=== PATIENT | female | born 1990 | race Caucasian/White ===

== ENCOUNTER 2017-09-08 16:56 | Emergency (ER) | payer SELFPAY ==
[2017-09-08 16:59] VITALS: BP 131/63; PULSE 94; RESP 20; TEMP 98.2; O2SAT 98
--- NOTE | 2017-09-08 17:24 | PD ---
HPI Chief Complaint: Numbness/Tingling Time Seen by Provider: 17:22 Travel History International Travel<30 days: No Contact w/Intl Traveler<30days: No Traveled to known affect area: No History of Present Illness HPI This 27-year-old female is complaining of numbness in the right side of her body. She's been having this for about 3 days. She says that she was having some pain in her right hip for several months. She didn't notice any swelling. She then developed some pain on the knee and the ankle on the right side. She then developed numbness on the right side of her body involving the trunk the arm leg in the face. This numbness comes and goes to bed. She says it seems to be worse when she lays down. She does have a history of panic attacks. She had one 2 weeks ago. She does say she is under a lot of stress. She has children that she cares for. Youngest child is 11 months old. She did not think she was and that we did do a test which is negative. She has no medical issues. She has no history of hypertension or diabetes. She has occasional headaches. [facility] Social History Tobacco Use: No Allergies-Medications (Allergen,Severity, Reaction): Coded Allergies: No Known Allergies (Unverified , 09/08/17) Reported Meds & Prescriptions Reported Meds & Active Scripts Active No Active Prescriptions or Reported Medications Review of Systems General / Constitutional: No: Fever, Chills Eyes: No: Diploplia, Blurred Vision HENT: No: Headaches Cardiovascular: No: Chest Pain or Discomfort, Palpitations Respiratory: No: Cough, Shortness of Breath Gastrointestinal: No: Nausea, Vomiting Genitourinary: No: Urgency, Frequency Musculoskeletal: No: Myalgias Skin: No Rash, No Itching Neurologic: No: Weakness, Dizziness Psychiatric: Positive: Anxiety Physical Exam Narrative GENERAL well-developed female SKIN: Focused skin assessment warm/dry. HEAD: Atraumatic. Normocephalic. EYES: Pupils equal and round. No scleral icterus. No injection or drainage. ENT: No nasal bleeding or discharge. Mucous membranes pink and moist. NECK: Trachea midline. No JVD. CARDIOVASCULAR: Regular rate and rhythm. No murmur appreciated. RESPIRATORY: No accessory muscle use. Clear to auscultation. Breath sounds equal bilaterally. GASTROINTESTINAL: Abdomen soft, non-tender, nondistended. Hepatic and splenic margins not palpable. MUSCULOSKELETAL: No obvious deformities. No clubbing. No cyanosis. No edema. NEUROLOGICAL: Awake and alert. No obvious cranial nerve deficits. Motor grossly within normal limits. Normal speech. There is no objective sensory deficit PSYCHIATRIC: Patient is anxious; insight and judgment normal. Data Data Last Documented VS Vital Signs Date Time Temp Pulse Resp B/P (MAP) Pulse Ox O2 Delivery O2 Flow Rate FiO2 09/08/17 18:00 80 16 107/70 (82) 98 Room Air 09/08/17 16:59 98.2 Orders Orders Ed Urine Pregnancytest Poc (09/08/17 17:22) Ct Brain W/O Iv Contrast(Rout) (09/08/17 17:24) [facility] Medical Decision Making Medical Screen Exam Complete: Yes Emergency Medical Condition: Yes Medical Record Reviewed: Yes Differential Diagnosis Differential includes paresthesias, anxiety, MS, CVA Narrative Course test is negative. CT scan has been done and is read as negative. Patient is stable for discharge. There is no objective motor or sensory deficit. This may be related to anxiety. If the symptoms persist workup with neurology may be warranted Diagnosis Primary Impression: Paresthesia Additional Instructions: Follow-up with neurology if symptoms persist Scripts No Active Prescriptions or Reported Meds Disposition: 01 DISCHARGE HOME Condition: Stable Aubrey Cox MD Sep 08, 2017 17:24
[2017-09-08 18:00] VITALS: BP 107/70; PULSE 80; RESP 16; O2SAT 98
--- NOTE | 2017-09-08 18:02 | RADRPT ---
EXAM DATE/TIME: 09/08/2017 17:43 [place] COMPARISON: No previous studies available for comparison. INDICATIONS : Right sided body numbness. RADIATION DOSE: 59.76 CTDIvol (mGy) MEDICAL HISTORY : None SURGICAL HISTORY : None. ENCOUNTER: Initial ACUITY: 3 days PAIN SCALE: 0/10 LOCATION: cranial TECHNIQUE: Multiple contiguous axial images were obtained of the head. Using automated exposure control and adj ustment of the mA and/or kV according to patient size, radiation dose was kept as low as reasonably a chievable to obtain optimal diagnostic quality images. DICOM format image data is available electro nically for review and comparison. FINDINGS: CEREBRUM: The ventricles are normal for age. No evidence of midline shift, mass lesion, hemorrhage or acute in farction. No extra-axial fluid collections are seen. POSTERIOR FOSSA: The cerebellum and brainstem are intact. The 4th ventricle is midline. The cerebellopontine angle i s unremarkable. EXTRACRANIAL: The visualized portion of the orbits is intact. SKULL: The calvaria is intact. No evidence of skull fracture. CONCLUSION: Normal examination. Buck Roberto MD on September 08, 2017 at 18:00 Board Certified Radiologist. This report was verified electronically.
== END 2017-09-08 18:31 | disposition home or self-care (01) ==
LOC: PHED 16:56
DX: R20.2 Paresthesia of skin (principal); Z86.59 Personal history of other mental and behavioral disorders
CPT/HCPCS: 70450; 84703; 99284